=== PATIENT | male | born 1955 | race African-American/Black ===

== ENCOUNTER → 2016-09-22 | Outpatient (CLI) | payer BC ==
[~2016-09-22] MED LIST: AMLO-110 PO; AMLO2.5T PO; ASPI325T4 PO; ASPI81TA28 PO; ATEN50TA8 PO; DYR50 PO; GLC500 PO; MXZC25 PO
== END | disposition home or self-care (01) ==
LOC: C.LAB1850 09:24
PROVIDERS: ATTEND Internal Medicine
DX: C61 Malignant neoplasm of prostate (principal)

== ENCOUNTER → 2016-09-26 | Outpatient (CLI) | payer BC ==
[2016-09-26 14:39] VITALS: BP 128/76; PULSE 77; TEMP 36.8; O2SAT 95
--- NOTE | 2016-09-26 16:56 | Radiation Oncology Follow-Up ---
Radiation Oncology Follow-Up Date of Visit Sep 26, 2016. (Edilma King PA-C) Reason For Visit 6 month follow-up (Edilma King PA-C) Radiation Completion Date finished 08-31-2015 (Edilma King PA-C) Diagnosis (1) Prostate cancer Status: Resolved Onset Date: 04/19/2015 Location: both lobes of the prostate Histology Subtype: adenocarcinoma Stage: ll Permanent Comment: DIAGNOSIS: Prostate, adenocarcinoma, angelito 3 + 4, PSA 6.12 , perineural invasion present, cT1c, group IIA Status post completion of radiation therapy 08/31/2015 received 8100 cGy Last Edited By: Adam Dunbar on Mar 29, 2016 17:05 (Edilma King PA-C) History of Present Illness Mr. Marquez is a 60-year-old gentleman who recently presented with an elevated PSA of 8.49 in August 2014. The patient had a repeat PSA on 02/16/2015 which was 6.12. The patient was referred to Dr. Raiza Alvarez who recommended a transrectal ultrasound-guided biopsy which was completed on 04/19/2015. Dr. Alvarez measured the prostate gland to be 60 cm. The pathology revealed prostate adenocarcinoma in 4/14 cores. Angelito 3+3 disease was noted in the right mid and right lateral mid and Reserve 3+4 disease was noted in the left lateral base in 2 cores. Perineural invasion was identified in the cores positive with Angelito 3+4 disease. 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 Dr. Alvarez is seen the patient in consultation and discuss treatment options including surgical resection and radiation therapy. Options of treatment were discussed with the patient and ultimately he made the decision to be treated with external beam radiation therapy. This was completed 08/31/2015 and he received 8100 cGy. (Edilma King PA-C) Interim History He is been doing well over this past 6 months. He completed an AUA score sheet and gave a score of 9.5. He completed expanded prostate cancer index composite for clinical practice and gave a score of 0 of 12 and urinary incontinence symptoms. He gave a score of 4 of 12 urinary irritation symptoms. He gave a score of 6 of 12 and bowel symptoms. He gave a score of 5 of 12 in sexual symptoms. He gave a score of 2 of 12 and hormonal vitality symptoms. His total with 17 of 60. He does not require any medication to help with urination. He has had recheck PSAs. His PSA 02/25/2016 was 2.430. The PSA was 1.810. We reviewed the bowel symptoms that he is having. These are unchanged from previous. He has an anal stricture. He has had problems prior to the radiation therapy. (Edilma King PA-C) Allergies Coded Allergies: No Known Allergies (Unverified , 04/21/15) Home Medications Scheduled Amlodipine (Norvasc), 2.5 MG PO DAILY Aspirin (Aspirin Ec), 81 MG PO DAILY Atenolol (Tenormin), 50 MG PO DAILY Triamterene (Dyrenium), 50 MG PO DAILY Review of Systems Gastrointestinal: Symptoms: WNL Oral: Symptoms: No Problems Respiratory: Symptoms: WNL Urinary: Symptoms: Nocturia Comments: nocturia times 2 - 3 Skin: Symptoms: No Problems (Edilma King PA-C) Physical Exam Vital Signs Date Time Temp Pulse Resp B/P Pulse Ox O2 Delivery O2 Flow Rate FiO2 09/26/16 14:39 36.8 77 20 128/76 95 Pain: Side: Bilateral Patient Pain Scale: 0 - 10 Initial Pain Intensity: 0.0 General Appearance: no apparent distress Eyes: normal inspection, EOMI ENT: normal ENT inspection Respiratory/Chest: lungs clear, no respiratory distress, no accessory muscle use Cardiovascular: regular rate, rhythm, no gallop, no murmur Abdomen: non tender, soft, no organomegaly Extremities: no pedal edema Neurologic/Psychiatric: no motor/sensory deficits, alert, normal mood/affect Skin: warm/dry (Edilma King PA-C) Laboratory Studies Test 09/22/16 09:26 Prostate Specific Antigen 1.810 ng/ml (0.000-4.000) (Edilma King PA-C) Assessment & Plan Plan: Continue PSAs every 6 months. Continue regular follow-up with Dr. Alvarez and Dr. Durham. He was also seen today by Dr. Dunbar. We reviewed general follow-up for patients with a history of prostate cancer. This is followed with the recheck PSAs. He does not require any scanning for surveillance. We asked him to return to our office in 1 year. He may call if he has any questions or concerns in the interim. (Edilma King PA-C) I agree with note created by Edilma King PA-C. I reviewed the patient's chart and information with her. I have examined and evaluated the patient. I reviewed relevant clinical information and answered the patient's and/or family' s questions. (Veeral. Dunbar MD) Total Time In Follow-Up I spent 20 minutes speaking to the patient and performing examination. I spent 15 minutes reviewing information and completing this note. (Edilma King PA-C) I spent 15 minutes examining and counseling the patient. (Veeral. Dunbar MD) Copy To ,Christos Gonzalez M.D.; Raiza Alvarez MD
== END | disposition home or self-care (01) ==
LOC: C.ONC 14:20
PROVIDERS: ATTEND Physician Assistant Medical
DX: Z08 Encounter for follow-up examination after completed treatment for malignant neoplasm (principal); Z92.3 Personal history of irradiation; Z85.46 Personal history of malignant neoplasm of prostate

== ENCOUNTER 2016-12-01 12:10 | Emergency (ER) | payer BC ==
[~2016-12-01] VITALS: Ht 175.3 cm; Wt 100.9 kg
[~2016-12-01 12:10] MED LIST changes: -AMLO-110 PO; -GLC500 PO; -MXZC25 PO
[2016-12-01 12:13] VITALS: TEMP 36.7; Ht 175.3 cm; Wt 100.9 kg
[2016-12-01] MEDS ORDERED: NovoLIN-R INSULIN PER UNIT CHARGE IV STA ×2 (12:37→14:39)
[2016-12-01] MEDS ORDERED: SODIUM CHLORIDE 0.9% 1000ML 1,000 ML IV STA ×2 (12:37)
--- NOTE | 2016-12-01 12:46 | EMERGENCY ROOM VISIT NOTE ---
History Report prepared by Sandor: Lacie Mccullough Under the Supervision of: Dr. Espinoza Paulson M.D. First contact with patient: 12:18 Chief Complaint: ABNORMAL LABS Stated Complaint: SLUGGISH, LISTLESS, FLU-LIKE SX History of Present Illness The patient is a 61 year old male who presents to the Emergency Room with complaints of persistent hyperglycemia that was found today. Per nursing notes the patient was found to have a blood glucose of 419 mg/dL when his labs were drawn at 0930. The patient reports that over the past week he has not been feeling well. He states that he has been feeling fatigued, listless, and dizzy. The patient states that he scheduled an appointment with his PCP yesterday due to his recent symptoms. He states that he was scheduled to have blood work this morning to test his triglycerides, and due to his appointment, more blood tests were added on. The patient reports that he does not have a history of diabetes, but states that he has a history of hypertension. The patient states that he drinks iced tea regularly and states that he drank a lot of soda over the weekend. He states that recently he has been increasingly thirsty and has had an increase in urination. The patient reports that he has been urinating approximately three times per hour. He notes a history of prostate cancer, stating that he had both surgery and radiation. Per nursing staff, the patient's blood glucose was 540 mg/dL upon arrival. The patient denies any recent fever. Source of History: patient, nursing staff Onset: today Position: other (global) Symptom Intensity: 419-540 mg/dL Quality: other (hyperglycemia) Timing: other (persistent) Associated Symptoms: + urinary symptoms (increased urination), + fatigue, No fevers Note: Associated symptoms: increasingly thirsty, dizzy, listless Review of Systems See HPI for pertinent positives & negatives. A total of 10 systems reviewed and were otherwise negative. Past Medical & Surgical Medical Problems: (1) Hypertension (2) Prostate cancer Family History Cancer Heart disease Hypertension Social History Smoking Status: Never Smoker Marital Status: Housing Status: lives with family Occupation Status: employed Current/Historical Medications Scheduled Amlodipine (Norvasc), 5 MG PO DAILY Aspirin (Aspirin Ec), 81 MG PO DAILY Atenolol (Tenormin), 50 MG PO DAILY Metformin HCl (Metformin HCl), 1,000 MG PO BID Triamterene/Hctz (Triamterene/Hctz 37.5-25MG Tab), 1 TAB PO DAILY Allergies Coded Allergies: No Known Allergies (Unverified , 12/01/16) Physical Exam Vital Signs Date Time Temp Pulse Resp B/P (MAP) Pulse Ox O2 Delivery O2 Flow Rate FiO2 12/01/16 16:19 77 18 142/87 96 Room Air 12/01/16 14:36 67 20 127/87 96 Room Air 12/01/16 13:43 73 12/01/16 12:13 36.7 78 18 133/93 95 Room Air Physical Exam GENERAL: Patient is in no acute distress. HEENT: No acute trauma, normocephalic atraumatic, mucous membranes moist, no nasal congestion, no scleral icterus. NECK: No stridor, no adenopathy, no meningismus, trachea is midline. LUNGS: Clear to auscultation bilaterally, no wheeze, no rhonchi, breath sounds equal. HEART: Without murmurs gallops or rubs, regular rate and rhythm. ABDOMEN: Soft, nontender, bowel sounds positive, no hernias, no peritonitis. EXTREMITIES: No cyanosis or edema, full range of motion of all the joints without pain or difficulty, no signs for acute trauma. NEUROLOGIC: Oriented x 3, no acute motor or sensory deficits, no focal weakness. SKIN: No rash, no jaundice, no diaphoresis. Medical Decision & Procedures Laboratory Results 12/01/16 12:55 Red Blood Count 5.17, Mean Corpuscular Volume 86.8, Mean Corpuscular Hemoglobin 30.8, Mean Corpuscular Hemoglobin Concent 35.4, Mean Platelet Volume 9.9, Neutrophils (%) (Auto) 64.9, Lymphocytes (%) (Auto) 25.5, Monocytes (%) (Auto) 5.8, Eosinophils (%) (Auto) 3.3, Basophils (%) (Auto) 0.3, Neutrophils # (Auto) 4.18, Lymphocytes # (Auto) 1.64, Monocytes # (Auto) 0.37, Eosinophils # (Auto) 0.21, Basophils # (Auto) 0.02 Test 12/01/16 12:55 12/01/16 16:18 White Blood Count 6.43 K/uL (4.8-10.8) Red Blood Count 5.17 M/uL (4.7-6.1) Hemoglobin 15.9 g/dL (14.0-18.0) Hematocrit 44.9 % (42-52) Mean Corpuscular Volume 86.8 fL (80-100) Mean Corpuscular Hemoglobin 30.8 pg (25-34) Mean Corpuscular Hemoglobin Concent 35.4 g/dl (32-36) Platelet Count 318 K/uL (130-400) Mean Platelet Volume 9.9 fL (7.4-10.4) Neutrophils (%) (Auto) 64.9 % Lymphocytes (%) (Auto) 25.5 % Monocytes (%) (Auto) 5.8 % Eosinophils (%) (Auto) 3.3 % Basophils (%) (Auto) 0.3 % Neutrophils # (Auto) 4.18 K/uL (1.4-6.5) Lymphocytes # (Auto) 1.64 K/uL (1.2-3.4) Monocytes # (Auto) 0.37 K/uL (0.11-0.59) Eosinophils # (Auto) 0.21 K/uL (0-0.5) Basophils # (Auto) 0.02 K/uL (0-0.2) RDW Standard Deviation 39.6 fL (36.4-46.3) RDW Coefficient of Variation 12.4 % (11.5-14.5) Immature Granulocyte % (Auto) 0.2 % Immature Granulocyte # (Auto) 0.01 K/uL (0.00-0.02) Urine Color YELLOW Urine Appearance CLEAR (CLEAR) Urine pH 6.5 (4.5-7.5) Urine Specific [place] 1.035 (1.000-1.030) Urine Protein NEG (NEG) Urine Glucose (UA) 3+ (NEG) Urine Ketones NEG (NEG) Urine Occult Blood NEG (NEG) Urine Nitrite NEG (NEG) Urine Bilirubin NEG (NEG) Urine Urobilinogen NEG (NEG) Urine Leukocyte Esterase NEG (NEG) Estimated Average Glucose 341 mg/dl Hemoglobin A1c 13.5 % (4.5-5.6) Troponin I < 0.015 ng/ml (0-0.045) Thyroid Stimulating Hormone (TSH) 1.100 uIu/ml (0.300-4.500) Bedside Glucose 230 mg/dl (70-99) Laboratory results reviewed by me. Medications Administered Medications (Trade) Dose Ordered Sig/Bernardo Route Start Time Stop Time Status Last Admin Dose Admin Sodium Chloride 1,000 ml @ 999 mls/hr Q1H1M STAT IV 12/01/16 12:37 12/01/16 13:37 DC 12/01/16 13:04 999 MLS/HR Sodium Chloride 1,000 ml @ 200 mls/hr Q5H STAT IV 12/01/16 12:37 12/01/16 17:23 DC 12/01/16 12:37 200 MLS/HR Insulin Human Regular (novoLIN-R U-100 PER UNIT) 10 units NOW STAT IV 12/01/16 12:37 12/01/16 12:45 DC 12/01/16 13:05 10 UNITS Insulin Human Regular (novoLIN-R U-100 PER UNIT) 10 units NOW STAT IV 12/01/16 14:39 12/01/16 14:40 DC 12/01/16 14:59 10 UNITS Metformin HCl (Glucophage Tab) 1,000 mg NOW STAT PO 12/01/16 14:39 12/01/16 14:40 DC 12/01/16 15:02 1,000 MG Sodium Chloride 500 ml @ 999 mls/hr Q31M STAT IV 12/01/16 14:52 12/01/16 15:22 DC 12/01/16 14:56 999 MLS/HR ECG Indication: other (hyperglycemia) Rate (beats per minute): 72 Rhythm: normal sinus Findings: no acute ischemic change, no ectopy ED Course 1235: The patient was evaluated in room B9. A complete history and physical exam was performed. 1237: Ordered Insulin Human Regular 10 units IV, Sodium Chloride 1000 ml @ 200 mls/hr IV, Sodium Chloride 1000 ml @ 999 mls/hr IV. 1255: I discussed the patient's case with Dr. Endy COHEN. She states that the patient should be started on 1000 mg of Metformin twice per day. She states that the patient should go to the outpatient clinic tomorrow to have his blood sugar tested. She additionally states that the patient should follow up in the office on Sunday or Sunday. 1438: I reevaluated the patient and he is resting comfortably. 1439: Ordered Metformin HCl 1000 mg PO, Insulin Human Regular 10 units IV. 1452: Ordered Sodium Chloride 500 ml @ 999 mls/hr IV. 1621: Per nursing staff, the patients blood glucose is 220 mg/dL. 1622: I reevaluated the patient and he is resting comfortably. I discussed the exam findings with him and I discussed the treatment plan. He verbalized complete understanding and agreement. He is ready to go home. Medical Decision The patient is a 61 year old male who presents to the ED with complaints of hyperglycemia. Differential diagnoses considered include diabetes, dehydration , DKA, electrolyte imbalance, anemia, infection. There is no leukocytosis or concerning anemia. Chemistry testing from earlier today did not show acidosis or renal failure. There was no evidence for thyroid dysfunction by my testing. Blood sugar here at the ER was around 540. EKG showed a sinus rhythm, no acute ischemia. Urinalysis showed glucose, no ketones, no evidence for infection. On exam, the patient was not toxic or febrile. The patient received IV saline and oral Glucophage. He was given IV insulin 2 doses. His blood sugar is now around 230. I discussed this case with the primary doctor's office. The patient is being discharged for recheck tomorrow. He is to be on Glucophage 1000 mg twice a day. He will stick to a diabetic diet. If he is worsening this weekend, he will return back to the ER. Medication Reconciliation: I attest that I have personally reviewed the patient' s current medication list. Blood Pressure Screening: Patient was found to have an elevated blood pressure and was referred to their primary doctor for recheck and further treatment. Consults Time Called: 1245 Consulting Physician: Dr. Endy COHEN Returned Call: [phone] I discussed the patient's case with Dr. Endy COHEN. She states that the patient should be started on 1000 mg of Metformin twice per day. She states that the patient should go to the outpatient clinic tomorrow to have his blood sugar tested. She additionally states that the patient should follow up in the office on Sunday or Sunday. Impression Primary Impression: Hyperglycemia Additional Impression: Dehydration Scribe Attestation The scribe's documentation has been prepared under my direction and personally reviewed by me in its entirety. I confirm that the note above accurately reflects all work, treatment, procedures, and medical decision making performed by me. Departure Information Dispostion Home / Self-Care Prescriptions Metformin HCl (Metformin HCl) 500 Mg Tab 1000 MG PO BID for 30 Days, #120 TAB Prov: Espinoza Paulson M.D. 12/01/16 Referrals ProChristos M.D. (PCP) Forms HOME CARE DOCUMENTATION FORM, IMPORTANT VISIT INFORMATION Patient Instructions My [facility] Additional Instructions diabetic diet as discussed avoid sugary drinks and foods glucaphage 2x per day for now see clinic in the am tomorrow for a sugar check return if worsening see your doctor sunday or sunday next week Problem Qualifiers
[2016-12-01 13:28] LABS: BASO % 0.3 %; BASO ABS # 0.02 K/uL (0-0.2); COMPLETE YES; EOS % 3.3 %; HEMATOCRIT 44.9 % (42-52); IG% 0.2 %; LYMPH % 25.5 %; LYMPH ABS # 1.64 K/uL (1.2-3.4); MEAN CELL VOLUME 86.8 fL (80-100); MEAN CORPUSCULAR HEMOGLOBIN 30.8 pg (25-34); MEAN CORPUSCULAR HGB CONC 35.4 g/dl (32-36); MEAN PLATELET VOLUME 9.9 fL (7.4-10.4); MONO % 5.8 %; NEUT % 64.9 %; PLATELET COUNT 318 K/uL (130-400); RED BLOOD COUNT 5.17 M/uL (4.7-6.1); WHITE BLOOD COUNT 6.43 K/uL (4.8-10.8)
[2016-12-01 13:29] LABS: URINE APPEARANCE CLEAR (CLEAR); URINE BILIRUBIN NEG (NEG); URINE COLOR YELLOW; URINE NITRITE NEG (NEG); URINE PH 6.5 (4.5-7.5); URINE SPECIFIC GRAVITY 1.035 (1.000-1.030); UROBILINOGEN NEG (NEG); ZZUR CULT IF INDIC CLEAN CATCH NO
[2016-12-01 13:33] LABS: MANUAL MICROSCOPIC REQUIRED? NO; REVIEW REQ? NO
[2016-12-01] MEDS ORDERED: AMLO-110 PO (13:33)
[2016-12-01] MEDS ORDERED: MXZC25 PO (13:33)
[2016-12-01 14:33] LABS: ESTIMATED AVERAGE GLUCOSE 341 mg/dl; HA1C FLAG Normal (Normal)
[2016-12-01] MEDS ORDERED: METFORMIN HCL 500 MG TAB PO STA (14:39)
[2016-12-01] MEDS ORDERED: SODIUM CHLORIDE 0.9% 500ML 500 ML IV STA (14:52)
[2016-12-01 16:19] VITALS: BP 142/87; PULSE 77; O2SAT 96
[2016-12-01] MEDS ORDERED: GLC500 PO (16:29)
== END 2016-12-01 16:35 | disposition home or self-care (01) ==
LOC: C.EDB 12:13
DX: R73.9 Hyperglycemia, unspecified (principal); E86.0 Dehydration; I10 Essential (primary) hypertension; C61 Malignant neoplasm of prostate; Z82.49 Family history of ischemic heart disease and other diseases of the circulatory system; Z79.82 Long term (current) use of aspirin

== ENCOUNTER → 2016-12-01 | Outpatient (CLI) | payer BC ==
[~2016-12-01] MED LIST changes: -ASPI325T4 PO
[2016-12-01 10:46] LABS: CALCIUM 9.5 mg/dl (8.5-10.1)
[2016-12-01 11:25] LABS: ALT/SGPT 40 U/L (12-78); AST/SGOT 19 U/L (15-37); BLOOD UREA NITROGEN 18 mg/dl (7-18); BUN/CREATININE RATIO 12.9 (10-20); CARBON DIOXIDE 30 mmol/L (21-32); CHLORIDE 96 mmol/L (98-107); CHOLESTEROL 229 mg/dl (0-200); CHOLESTEROL/HDL RATIO 6.9; GLUCOSE 419 mg/dl (70-99); HDL CHOLESTEROL 33 mg/dl; POTASSIUM 3.3 mmol/L (3.5-5.1); SODIUM 138 mmol/L (136-145); TRIGLYCERIDES 764 mg/dl (0-150)
[2016-12-01 11:55] LABS: BETA-HYDROXYBUTYRATE 19.39 mg/dL (0.2-2.81)
[2016-12-01 16:30] LABS: LYME DISEASE AB IGM NEG (NEG)
[2016-12-01 16:33] LABS: LYME DISEASE AB IGG NEG (NEG)
--- NOTE | 2017-01-18 08:11 | CODING QUERY MEDICAL NECESSITY ---
SUPPORTING DIAGNOSIS NEEDED A supporting diagnosis is required for the test/procedure performed on this patient in order for us to be reimbursed by the patient's insurance. Please provide a supporting diagnosis for the following test/procedure listed below next to the test name along with your signature. *If there is no additional diagnosis for this patient that would support the following test/procedure please document that below next to the test/procedure. Test(s)/Procedure(s) that require a supporting diagnosis: * VITAMIN B12 DIAGNOSIS: * VITAMIN D, 25 - HYDROXY DIAGNOSIS: Provider Signature: Date: Thank you Jackelyn Trevino [employer] Information Management Once completed, please kindly fax back to [phone] For questions please call [phone]
== END | disposition home or self-care (01) ==
LOC: C.LAB1850 09:16
PROVIDERS: ATTEND Physician Assistant
DX: I10 Essential (primary) hypertension (principal); E78.5 Hyperlipidemia, unspecified; R53.81 Other malaise; E55.9 Vitamin D deficiency, unspecified; R53.83 Other fatigue

== ENCOUNTER → 2016-12-02 | Outpatient (CLI) | payer BC ==
[~2016-12-02] MED LIST changes: +AMLO-110 PO; -AMLO2.5T PO; -DYR50 PO; +GLC500 PO; +MXZC25 PO
[2016-12-02 11:15] LABS: BETA-HYDROXYBUTYRATE 22.11 mg/dL (0.2-2.81)
--- NOTE | 2016-12-15 07:56 | CODING QUERY NO DIAGNOSIS ---
TREATMENT RENDERED WITHOUT A DIAGNOSIS : 1955 To promote full compliance with coding requirements relating to patient care, physician participation is requested in all cases of stave and bolt equalizer uncertainty. Please assist us with providing a diagnosis/symptom for the test(s) below: A diagnosis/symptom was not documented on your Order. A valid diagnosis/symptom is required to bill all insurances. Please remember that we are unable to code a diagnosis of rule out, probable, possible, questionable, or suspected. Tests that require a diagnosis: DOS: 12/02/16 * GLUCOSE DIAGNOSIS: * BETA HYDROXYBUTYRATE DIAGNOSIS: Provider Signature: Date: Thank you Karina Vázquez Health Information Management Once completed, please kindly fax back to [phone] For questions please call [phone]
== END | disposition home or self-care (01) ==
LOC: C.LABBC 09:35
PROVIDERS: ATTEND Emergency Medicine
DX: R73.9 Hyperglycemia, unspecified (principal)

== ENCOUNTER 2017-08-21 17:53 | Emergency (ER) | payer BC, OTHER ==
[~2017-08-21] VITALS: Ht 175.3 cm; Wt 102.7 kg
[2017-08-21 17:58] VITALS: TEMP 37.2; Ht 175.3 cm; Wt 102.7 kg
[2017-08-21 18:12] VITALS: O2SAT 97
[2017-08-21] MEDS ORDERED: HydrALAZINE HCL 20 MG/ML VIAL IV. STA (18:16)
--- NOTE | 2017-08-21 18:28 | EMERGENCY ROOM VISIT NOTE ---
History Report prepared by Sandor: Aric Larsen Under the Supervision of: Dr. Sherly Lizama M.D. First contact with patient: 18:09 Chief Complaint: NEURO SYMPTOMS Stated Complaint: SLURRED SPEECH;DOC REFERRED Nursing Triage Summary: Pt states, "I began to have slurred and garbled speech Sat about 11am. I wasn't too alarmed at first. It has been persistent since that time. It's not every word. I went to visit a close friend last night and tell them ahead of time and they could tell something happened. I have a slight h/a." Denies weakness. History of Present Illness The patient is a 62 year old male with a history of prostate cancer, hypertension and a heart catheterization who presents to the Emergency Room with complaints of persistent speech difficulties that started 3 days ago. He states that he noticed the speech problems during the morning of the day of onset. The patient says that he mostly has been slurring words, and his friends from out of town noticed the speech changes as well. He states that he still has been having the speech difficulties, so he contacted Dr. Durham's office today , and was told to come here for evaluation. The patient notes that he had a headache 2 nights ago, but it has since resolved, and he gets headaches off and on normally. The patient says that he took his blood pressure medication today, and the last time he was evaluated in Dr. Durham's office was in April, and at that time, his blood pressure was noted to be reasonable. However, he says that he was in a hospital a little bit over a week ago, and his blood pressure may have been noted to be high at that time. The patient denies any vomiting, chest pain or shortness of breath. The patient notes that he had a bit of abdominal pain for 10 minutes this morning, but describes it more as a "nauseousness". He states that he has not noticed any trouble walking. He is a non-smoker. He says that he was diagnosed with diabetes type II this past summer. The patient notes no history of stent placements, and says that his catheterization in the past went well. Source of History: patient, nursing staff Onset: 3 days ago Position: other (global - speech difficulties) Quality: other (slurring words) Timing: other (persistent) Associated Symptoms: + abdominal pain (resolved), No headache (had a headache 2 nights ago but has since resolved, and headache was not abnormal), No chest pain, No SOB, No nausea, No vomiting Note: No other associated symptoms noted. Review of Systems See HPI for pertinent positives & negatives. A total of 10 systems reviewed and were otherwise negative. Past Medical & Surgical Medical Problems: (1) Diabetes (2) Hypertension (3) Prostate cancer Family History Cancer Heart disease Hypertension Social History Smoking Status: Never Smoker Marital Status: Housing Status: lives with family Occupation Status: employed Current/Historical Medications Scheduled Amlodipine (Norvasc), 5 MG PO DAILY Aspirin (Aspirin Ec), 81 MG PO DAILY Atenolol (Tenormin), 50 MG PO DAILY Metformin Hcl (Glucophage), 500 MG PO DAILY Triamterene/Hctz (Triamterene/Hctz 37.5-25MG Tab), 1 TAB PO DAILY Allergies Coded Allergies: No Known Allergies (Unverified , 08/21/17) Physical Exam Vital Signs Date Time Temp Pulse Resp B/P (MAP) Pulse Ox O2 Delivery O2 Flow Rate FiO2 08/21/17 20:18 82 18 137/95 98 08/21/17 19:09 67 18 150/94 98 Room Air 08/21/17 18:13 77 08/21/17 18:12 97 Room Air 08/21/17 17:58 37.2 77 18 156/102 97 Room Air Physical Exam Vital signs reviewed. General: Well-appearing 62 year old male, in no significant distress. HEENT: No scleral icterus, PERRLA, neck supple. Atraumatic. Cardiovascular: Regular rate and rhythm, no extra sounds. Pulmonary: Clear to auscultation bilaterally, normal work of breathing. Abdomen: Soft, nontender, nondistended, positive bowel sounds. Musculoskeletal: Atraumatic, no peripheral edema. Neurologic: Patient awake alert and oriented x 3, full strength in all 4 extremities. Cranial nerves 2 through 12 grossly intact. No appreciable speech slur. Skin: Warm, dry, no rash Medical Decision & Procedures ER Provider Diagnostic Interpretation: Radiology results as stated below per my review and radiologist interpretation: CT SCAN OF THE BRAIN WITHOUT IV CONTRAST CLINICAL HISTORY: Slurred speech. COMPARISON STUDY: No priors. TECHNIQUE: Unenhanced axial CT scan of the brain is performed from the vertex to the skull base. A dose lowering technique was utilized adhering to the principles of ALARA. CT DOSE: 761.69 mGy.cm FINDINGS: Brain parenchyma: The brain parenchyma is normal in appearance. There is no hemorrhage, mass effect, or evidence of acute territorial ischemia by CT criteria. Chan-white matter is preserved. No extra-axial fluid collection is seen. Ventricles, sulci, cisterns: Normal in configuration. Intracranial vasculature: There is atherosclerotic calcification of the cavernous carotid arteries. Calvarium: Unremarkable. Sinuses and mastoids: Trace mucosal thickening is seen within the maxillary antra and the left frontal sinus. The remaining visualized paranasal sinuses are clear. The mastoid air cells are well pneumatized. Orbits: The bony orbits are grossly intact. There are bilateral ocular lens implants. IMPRESSION: There is no hemorrhage, mass effect, or evidence of acute territorial ischemia by CT criteria. Electronically signed by: Espinoza Stovall M.D. 08/21/2017 6:43 PM Dictated Date/Time: 08/21/2017 6:41 PM SINGLE VIEW CHEST CLINICAL HISTORY: Strokelike symptoms. FINDINGS: An AP, portable, upright chest radiograph is compared to study dated 02/13/2012. The examination is degraded by portable technique and patient rotation. The cardiomediastinal silhouette is unremarkable. The lungs and pleural spaces are clear. No pneumothorax is seen. The bony thorax is grossly intact. IMPRESSION: No active disease in the chest. Electronically signed by: Espinoza Stovall M.D. 08/21/2017 7:18 PM Dictated Date/Time: 08/21/2017 7:17 PM Laboratory Results 08/21/17 18:10 Red Blood Count 5.15, Mean Corpuscular Volume 86.2, Mean Corpuscular Hemoglobin 30.7, Mean Corpuscular Hemoglobin Concent 35.6, Mean Platelet Volume 9.1, Neutrophils (%) (Auto) 62.8, Lymphocytes (%) (Auto) 25.7, Monocytes (%) (Auto) 7.0, Eosinophils (%) (Auto) 3.7, Basophils (%) (Auto) 0.5, Neutrophils # (Auto) 4.05, Lymphocytes # (Auto) 1.66, Monocytes # (Auto) 0.45, Eosinophils # (Auto) 0.24, Basophils # (Auto) 0.03 08/21/17 18:10 Test 08/21/17 18:10 08/21/17 18:28 White Blood Count 6.45 K/uL (4.8-10.8) Red Blood Count 5.15 M/uL (4.7-6.1) Hemoglobin 15.8 g/dL (14.0-18.0) Hematocrit 44.4 % (42-52) Mean Corpuscular Volume 86.2 fL (80-100) Mean Corpuscular Hemoglobin 30.7 pg (25-34) Mean Corpuscular Hemoglobin Concent 35.6 g/dl (32-36) Platelet Count 275 K/uL (130-400) Mean Platelet Volume 9.1 fL (7.4-10.4) Neutrophils (%) (Auto) 62.8 % Lymphocytes (%) (Auto) 25.7 % Monocytes (%) (Auto) 7.0 % Eosinophils (%) (Auto) 3.7 % Basophils (%) (Auto) 0.5 % Neutrophils # (Auto) 4.05 K/uL (1.4-6.5) Lymphocytes # (Auto) 1.66 K/uL (1.2-3.4) Monocytes # (Auto) 0.45 K/uL (0.11-0.59) Eosinophils # (Auto) 0.24 K/uL (0-0.5) Basophils # (Auto) 0.03 K/uL (0-0.2) RDW Standard Deviation 41.1 fL (36.4-46.3) RDW Coefficient of Variation 12.9 % (11.5-14.5) Immature Granulocyte % (Auto) 0.3 % Immature Granulocyte # (Auto) 0.02 K/uL (0.00-0.02) Anion Gap 8.0 mmol/L (3-11) Est Creatinine Clear Calc Drug Dose 81.8 ml/min Estimated GFR () 81.7 Estimated GFR (Non- 70.5 BUN/Creatinine Ratio 15.1 (10-20) Calcium Level 9.2 mg/dl (8.5-10.1) Magnesium Level 2.2 mg/dl (1.8-2.4) Total Bilirubin 0.3 mg/dl (0.2-1) Direct Bilirubin < 0.1 mg/dl (0-0.2) Aspartate Amino Transf (AST/SGOT) 24 U/L (15-37) Alanine Aminotransferase (ALT/SGPT) 39 U/L (12-78) Alkaline Phosphatase 66 U/L (45-117) Total Creatine Kinase 137 U/L (39-308) Creatine Kinase MB 2.8 ng/ml (0.5-3.6) Creatine Kinase MB Ratio 2.0 (0-3.0) Total Protein 8.0 gm/dl (6.4-8.2) Albumin 3.9 gm/dl (3.4-5.0) Thyroid Stimulating Hormone (TSH) 1.170 uIu/ml (0.300-4.500) Bedside Troponin I < 0.030 ng/ml (0-0.045) Laboratory results per my review. Medications Administered Medications (Trade) Dose Ordered Sig/Bernrado Route Start Time Stop Time Status Last Admin Dose Admin Hydralazine HCl (HydrALAZINE INJ) 10 mg NOW STAT IV. 08/21/17 18:16 08/21/17 18:20 DC 08/21/17 19:09 10 MG Amlodipine Besylate (Norvasc Tab) 5 mg NOW STAT PO 08/21/17 19:38 08/21/17 19:39 DC 08/21/17 20:14 5 MG ECG Per My Interpretation Indication: other (stroke symptoms) Rate (beats per minute): 71 Rhythm: normal sinus Findings: no acute ischemic change, no ectopy, other (QTC 415) ED Course 1813: Past medical records reviewed. The patient was evaluated in room B6. A complete history and physical examination was performed. 1815: Ordered Hydralazine Inj 10 mg IV. 1937: Ordered Norvasc Tab 5 mg PO. 1941: Upon reevaluation, the patient appeared to be resting comfortably. I discussed findings with him. He verbalized agreement of the treatment plan. He was discharged home. Medical Decision Differential diagnosis: Etiologies such as metabolic, infection, hypo/hyperglycemia, electrolyte abnormalities, cardiac sources, intracerebral event, toxicologic, neurologic, as well as others were entertained. This pt was evaluated and appeared to be in no distress. IV access was obtained and lab work was drawn. Pt was placed on the recycling or rubbish collector. PE is unrevealing. Pt is noted to be hypertensive. He was given 10 mg of IV hydralazine. CT head was performed and is negative for acute abnl. Lab work is unrevealing. EKG is a NSR. Pt BP improved. I am not able to appreciate a speech impairment. The likely scenario is periodic spikes in BP. Pt was advised to increase norvasc to 10 mg daily. He will f/u with PCP in several days as scheduled. Given his risk profile, pt will likely require further workup. Pt will return to the ED for worsening of symptoms or any medical concerns. Medication Reconcilliation Current Medication List: was personally reviewed by me Blood Pressure Screening Patient's blood pressure: Elevated blood pressure Blood pressure disposition: Referred to PCP Impression Primary Impression: Hypertension Scribe Attestation The scribe's documentation has been prepared under my direction and personally reviewed by me in its entirety. I confirm that the note above accurately reflects all work, treatment, procedures, and medical decision making performed by me. Departure Information Dispostion Home / Self-Care Referrals Christos Durham M.D. (PCP) Forms HOME CARE DOCUMENTATION FORM, IMPORTANT VISIT INFORMATION, WORK / SCHOOL INSTRUCTIONS Patient Instructions My [facility] Additional Instructions Diagnosis: Hypertension Increase your Norvasc to 10 mg daily. Monitor your blood pressure once daily. Follow-up with your physician within the next several days for blood pressure recheck and further evaluation. You may require further testing. Return to the emergency department immediately for worsening of symptoms or any medical concerns. Problem Qualifiers Primary Impression: Hypertension Hypertension type: unspecified Qualified Codes: I10 - Essential (primary) hypertension
[2017-08-21 18:43] LABS: BASO % 0.5 %; BASO ABS # 0.03 K/uL (0-0.2); EOS % 3.7 %; EOS ABS # 0.24 K/uL (0-0.5); HEMATOCRIT 44.4 % (42-52); HEMOGLOBIN 15.8 g/dL (14.0-18.0); IG# 0.02 K/uL (0.00-0.02); LYMPH % 25.7 %; LYMPH ABS # 1.66 K/uL (1.2-3.4); MEAN CELL VOLUME 86.2 fL (80-100); MEAN CORPUSCULAR HEMOGLOBIN 30.7 pg (25-34); MEAN CORPUSCULAR HGB CONC 35.6 g/dl (32-36); MEAN PLATELET VOLUME 9.1 fL (7.4-10.4); MONO ABS # 0.45 K/uL (0.11-0.59); NEUT % 62.8 %; NEUT ABS # 4.05 K/uL (1.4-6.5); PLATELET COUNT 275 K/uL (130-400); RED CELL DISTRIBUTION WIDTH CV 12.9 % (11.5-14.5); RED CELL DISTRIBUTION WIDTH SD 41.1 fL (36.4-46.3); WHITE BLOOD COUNT 6.45 K/uL (4.8-10.8)
--- NOTE | 2017-08-21 18:45 | DIAGNOSTIC IMAGING REPORT ---
CT SCAN OF THE BRAIN WITHOUT IV CONTRAST CLINICAL HISTORY: Slurred speech. COMPARISON STUDY: No priors. TECHNIQUE: Unenhanced axial CT scan of the brain is performed from the vertex to the skull base. A dose lowering technique was utilized adhering to the principles of ALARA. CT DOSE: 761.69 mGy.cm FINDINGS: Brain parenchyma: The brain parenchyma is normal in appearance. There is no hemorrhage, mass effect, or evidence of acute territorial ischemia by CT criteria. Chan-white matter is preserved. No extra-axial fluid collection is seen. Ventricles, sulci, cisterns: Normal in configuration. Intracranial vasculature: There is atherosclerotic calcification of the cavernous carotid arteries. Calvarium: Unremarkable. Sinuses and mastoids: Trace mucosal thickening is seen within the maxillary antra and the left frontal sinus. The remaining visualized paranasal sinuses are clear. The mastoid air cells are well pneumatized. Orbits: The bony orbits are grossly intact. There are bilateral ocular lens implants. IMPRESSION: There is no hemorrhage, mass effect, or evidence of acute territorial ischemia by CT criteria. Electronically signed by: Espinoza Stovall M.D. 08/21/2017 6:43 PM Dictated Date/Time: 08/21/2017 6:41 PM
[2017-08-21 19:02] LABS: ALBUMIN 3.9 gm/dl (3.4-5.0); ALT/SGPT 39 U/L (12-78); AST/SGOT 24 U/L (15-37); BLOOD UREA NITROGEN 17 mg/dl (7-18); CALCIUM 9.2 mg/dl (8.5-10.1); CARBON DIOXIDE 27 mmol/L (21-32); CREATININE 1.12 mg/dl (0.60-1.40); GLUCOSE 137 mg/dl (70-99); POTASSIUM 3.6 mmol/L (3.5-5.1); SODIUM 140 mmol/L (136-145)
[2017-08-21 19:13] LABS: ALKALINE PHOSPHATASE 66 U/L (45-117); CKMB 2.8 ng/ml (0.5-3.6)
--- NOTE | 2017-08-21 19:19 | DIAGNOSTIC IMAGING REPORT ---
SINGLE VIEW CHEST CLINICAL HISTORY: Strokelike symptoms. FINDINGS: An AP, portable, upright chest radiograph is compared to study dated 02/13/2012. The examination is degraded by portable technique and patient rotation. The cardiomediastinal silhouette is unremarkable. The lungs and pleural spaces are clear. No pneumothorax is seen. The bony thorax is grossly intact. IMPRESSION: No active disease in the chest. Electronically signed by: Espinoza Stovall M.D. 08/21/2017 7:18 PM Dictated Date/Time: 08/21/2017 7:17 PM
[2017-08-21] MEDS ORDERED: GLC/500 PO (19:25)
[2017-08-21] MEDS ORDERED: AMLODIPINE BESYLATE 5 MG TAB PO STA (19:38)
[2017-08-21 20:18] VITALS: BP 137/95; PULSE 82; O2SAT 98
== END 2017-08-21 20:19 | disposition home or self-care (01) ==
LOC: C.EDB 17:55
DX: I10 Essential (primary) hypertension (principal); R47.81 Slurred speech; Z85.46 Personal history of malignant neoplasm of prostate; E11.9 Type 2 diabetes mellitus without complications; Z80.9 Family history of malignant neoplasm, unspecified; Z82.49 Family history of ischemic heart disease and other diseases of the circulatory system; Z79.82 Long term (current) use of aspirin; Z79.84 Long term (current) use of oral hypoglycemic drugs; Z79.899 Other long term (current) drug therapy

== ENCOUNTER → 2017-09-04 | Outpatient (CLI) | payer OTHER ==
[~2017-09-04] MED LIST changes: +GLC/500 PO; -GLC500 PO
--- NOTE | 2017-09-04 07:59 | DIAGNOSTIC IMAGING REPORT ---
BRAIN WITHOUT CONTRAST HISTORY: 62 years-old Male R47.9 acute slurred speech with hypertension and headache COMPARISON: Head CT 08/21/2017 TECHNIQUE: Multiplanar multisequence MRI of the brain was obtained without contrast FINDINGS: The localizer images demonstrate no gross abnormality. The midline structures including the corpus callosum, brainstem, optic chiasm, pituitary and pineal glands appear unremarkable as seen on the sagittal T1 series. There is no cerebellar tonsillar herniation. No significant degenerative changes of the cervical spine. There is no restricted diffusion to suggest acute or subacute infarction. There is no acute intracranial hemorrhage, midline shift, abnormal extra-axial collections or hydrocephalus. 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 Scattered multifocal areas of increased T2/FLAIR signal noted within the subcortical and periventricular white matter suggesting mild to moderate chronic microvascular ischemic changes. The major flow voids at the level of the skull base appear patent. Orbits are symmetric. Mastoid air cells are clear. Minimal mucosal thickening of the maxillary and ethmoid sinuses. Scalp, covering and soft tissues are within normal limits. IMPRESSION: 1. No acute intracranial abnormality identified. No evidence of acute or subacute infarction. 2. Mild to moderate chronic microvascular ischemic changes. 3. Mild paranasal sinus disease. The above report was generated using voice recognition software. It may contain grammatical, syntax or spelling errors. Electronically signed by: Malachi Alberts M.D. 09/04/2017 7:58 AM Dictated Date/Time: 09/04/2017 7:54 AM
== END | disposition home or self-care (01) ==
LOC: C.MRI 07:06
PROVIDERS: ATTEND Internal Medicine
DX: R47.9 Unspecified speech disturbances (principal)

== ENCOUNTER → 2017-10-02 | Outpatient (CLI) | payer OTHER ==
[~2017-10-02] MED LIST changes: +ATOR-22 PO
[2017-10-02 14:44] VITALS: BP 110/63; PULSE 73; TEMP 36.5; O2SAT 96
--- NOTE | 2017-10-02 15:36 | Radiation Oncology Follow-Up ---
Radiation Oncology Follow-Up Date of Visit Oct 02, 2017. Reason For Visit Annual follow-up Radiation Completion Date 08/31/15 Diagnosis (1) Prostate cancer Status: Resolved Onset Date: 04/19/2015 Location: Both lobes of the prostate Histology Subtype: Adenocarcinoma Stage: ll Permanent Comment: DIAGNOSIS: Prostate, adenocarcinoma, angelito 3 + 4, PSA 6.12 , perineural invasion present, cT1c, group IIA Status post completion of radiation therapy 08/31/2015 received 8100 cGy Last Edited By: Adam Dunbar on Mar 29, 2016 17:05 History of Present Illness Mr. Marquez is a 60-year-old gentleman who recently presented with an elevated PSA of 8.49 in August 2014. The patient had a repeat PSA on 02/16/2015 which was 6.12. The patient was referred to Dr. Raiza Alvarez who recommended a transrectal ultrasound-guided biopsy which was completed on 04/19/2015. Dr. Alvarez measured the prostate gland to be 60 cm. The pathology revealed prostate adenocarcinoma in 4/14 cores. Angelito 3+3 disease was noted in the right mid and right lateral mid and Stilwell 3+4 disease was noted in the left lateral base in 2 cores. Perineural invasion was identified in the cores positive with Angelito 3+4 disease. 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 Dr. Alvarez is seen the patient in consultation and discuss treatment options including surgical resection and radiation therapy. Options of treatment were discussed with the patient and ultimately he made the decision to be treated with external beam radiation therapy. This was completed 08/31/2015 and he received 8100 cGy. Interim History He has been doing well over this past year. He has had steady improvement in his urinary status. Today he gave an AUA score of 6.5. At his last visit he gave a score of 9.5. He has noted some mild discomfort at the end of urination. He had seen Dr. Alvarez and medication was prescribed. The prescription was not filled. It was expensive and he opted not to take the prescription. The discomfort has steadily improved. He now only has a mild sensation of discomfort at the end of urination. He has had follow-up PSAs. He had a recheck PSA September 22, 2016 that was 1.810. He had a PSA August 22, 2017 that was 1.0. He completed and expanded prostate cancer index composite for clinical practice and gave a score of 0 of 12 and urinary incontinence symptoms. He gave a score of 1 of 12 and urinary irritation symptoms. He gave a score of 9 of 12 and bowel symptoms. He gave a score of 4 of 12 and sexual symptoms. He gave a score of 0 12 and hormonal vitality symptoms. His total was 14 of 60. Allergies Coded Allergies: No Known Allergies (Unverified , 08/21/17) Home Medications Scheduled Amlodipine (Norvasc), 10 MG PO DAILY Aspirin (Aspirin Ec), 81 MG PO DAILY Atenolol (Tenormin), 50 MG PO DAILY Atorvastatin (Lipitor), 1 TAB PO HS Metformin Hcl (Glucophage), 500 MG PO DAILY Triamterene/Hctz (Triamterene/Hctz 37.5-25MG Tab), 1 TAB PO DAILY Review of Systems Gastrointestinal: Symptoms: WNL GI Comments: looser stol since started statin Oral: Symptoms: No Problems Respiratory: Symptoms: WNL Urinary: Symptoms: Nocturia Comments: same as pretreatment Skin: Symptoms: No Problems Physical Exam Vital Signs Date Time Temp Pulse Resp B/P (MAP) Pulse Ox O2 Delivery O2 Flow Rate FiO2 10/02/17 14:44 36.5 73 18 110/63 96 Fatigue: None General Appearance: no apparent distress Eyes: normal inspection, EOMI ENT: normal ENT inspection, hearing grossly normal Respiratory/Chest: lungs clear, no respiratory distress, no accessory muscle use Cardiovascular: regular rate, rhythm, no gallop, no murmur Abdomen: non tender, soft, no organomegaly Extremities: no pedal edema Neurologic/Psychiatric: no motor/sensory deficits, alert, normal mood/affect Skin: warm/dry Pain Management Patient Reports Pain: No Pain Location: None Patient Preferred Pain Scale: 0 - 10 Initial Pain Intensity: 0.0 Pain Management Plan He denies pain therefore requires no pain management. Laboratory Laboratory Results: were reviewed Laboratory Comments: Reviewed in the interim history. Pathology Pathology Results: were reviewed, and pertinent findings noted in HPI Imaging Imaging Studies: not applicable Assessment & Plan Plan: The patient is also seen today by Dr. Dunbar. We have reviewed his laboratory studies. We discussed biochemical failure. He will continue follow- up with Dr. Alvarez and his primary care physician. He will be seeing Dr. Alvarez in March. We asked him to return to our office in 1 year. He may call if he has any questions or concerns in the interim. Assessment & Plan (Attending) I agree with note created by Edilma King PA-C. I reviewed the patient's chart and information with her. I have examined and evaluated the patient. I reviewed relevant clinical information and answered the patient's and/or family' s questions. CABIN EQUIPMENT SUPERVISOR Total Time In Follow-Up I spent 20 minutes speaking to the patient and performing examination. I spent 15 minutes reviewing information and completing this note. AK Total Time (Attending) In Follow-Up I spent 15 minutes examining and counseling the patient. CABIN EQUIPMENT SUPERVISOR Copy To ,Christos Gonzalez M.D.; Raiza Alvarez MD
== END | disposition home or self-care (01) ==
LOC: C.ONC 14:29
PROVIDERS: ATTEND Physician Assistant Medical
DX: Z08 Encounter for follow-up examination after completed treatment for malignant neoplasm (principal); Z92.3 Personal history of irradiation; Z85.46 Personal history of malignant neoplasm of prostate

== ENCOUNTER → 2018-02-20 | Outpatient (CLI) | payer OTHER ==
[~2018-02-20] MED LIST changes: -AMLO-110 PO; +AMLO5TAB3 PO
--- NOTE | 2018-02-20 10:24 | DIAGNOSTIC IMAGING REPORT ---
(ANNMARIE/BLAD)RETROPERITON COMP HISTORY: 62 years-old Male N28.9 Kidney function [id number] COMPARISON: None available TECHNIQUE: Multiple real-time sonographic images of the kidneys and bladder were obtained assessing grayscale appearance and color flow FINDINGS: The right kidney measures 14.1 x 7.4 x 7.7 cm. Moderate right-sided hydronephrosis, renal pelvis measuring 4.5 cm transversely. Hydronephrosis persists on the post void images. Cyst of the right kidney are noted including a 1.4 cm cyst of the lower pole. No right-sided renal calculi or suspicious mass lesions identified. Left kidney measures 12.3 x 6.6 x 6.6 cm and demonstrates no renal calculi or hydronephrosis. There are a few subcentimeter cysts noted about the left kidney measuring up to 7 mm. Bladder is partially decompressed with circumferential wall thickening measuring up to 4 mm. Left ureteral jet noted. The right ureteral jet is not seen. Post void residual volume of 7 mL. IMPRESSION: 1. Moderate right-sided hydronephrosis. 2. Mild circumferential wall thickening of the urinary bladder. Correlate with urinalysis. 3. Small bilateral renal cysts. The above report was generated using voice recognition software. It may contain grammatical, syntax or spelling errors. Electronically signed by: Malachi Alberts M.D. 02/20/2018 10:23 AM Dictated Date/Time: 02/20/2018 10:18 AM
== END | disposition home or self-care (01) ==
LOC: C.ULTR 09:34
PROVIDERS: ATTEND Internal Medicine
DX: N28.9 Disorder of kidney and ureter, unspecified (principal); N13.30 Unspecified hydronephrosis; N28.1 Cyst of kidney, acquired